=== PATIENT | male | born 1985 | race Hispanic/Latino ===

== ENCOUNTER 2018-07-12 20:06 | Emergency (ER) | payer BC, OTHER ==
[2018-07-12 21:29] VITALS: BP 113/71; PULSE 67; RESP 16; TEMP 98.3; O2SAT 100
[2018-07-12] MEDS ORDERED: Povidone Iodine Topical 10% Sol ONE (22:11)
[2018-07-12] MEDS ORDERED: Tdap Vaccine 0.5 ml Vial (10-64 yrs) IM ONE ×2 (22:12→22:58)
--- NOTE | 2018-07-12 23:00 | ED PDOC ---
HPI: Skin/Bite Injury Time Seen by Provider: 07/12/18 22:13 Chief Complaint (Nursing): Abnormal Skin Integrity Chief Complaint (Provider): laceration History Per: Patient History/Exam Limitations: no limitations Onset/Duration Of Symptoms: Hrs (one) Additional Complaint(s): Pt presents to the ED complaining of a right thumb laceration at the distal edge; pt sliced his thumb inadvertently with a kitchen utensil; bleeding is under control, the patient is NKA and he is hemodynamically stable. Past Medical History Reviewed: Historical Data, Nursing Documentation, Vital Signs Vital Signs: Last Vital Signs Temp 98.3 F 07/12/18 21:28 Pulse 67 07/12/18 21:28 Resp 16 07/12/18 21:28 BP 113/71 07/12/18 21:28 Pulse Ox 100 07/12/18 21:28 - Family History Family History: States: Unknown Family Hx - Allergies Allergies/Adverse Reactions: Allergies Allergy/AdvReac Type Severity Reaction Status Date / Time No Known Allergies Allergy Verified 07/12/18 21:28 Review of Systems ROS Statement: Except As Marked, All Systems Reviewed And Found Negative Skin: Positive for: Other (laceration, see HPI) Physical Exam - Reviewed Nursing Documentation Reviewed: Yes Vital Signs Reviewed: Yes - Physical Exam Appears: Positive for: Well, Non-toxic Head Exam: Positive for: ATRAUMATIC, NORMAL INSPECTION Skin: Positive for: Warm, Dry. Negative for: Normal Color (avulsion laceration at distal edge of left thumb; bleeding is under control), Diaphoresis, Pallor, Rash Neck: Positive for: Supple Cardiovascular/Chest: Positive for: Regular Rate, Rhythm Respiratory: Positive for: Normal Breath Sounds Pulses-Carotid (L): 2+ Pulses-Carotid (R): 2+ Pulses-Radial (L): 2+ Pulses-Radial (R): 2+ - ECG O2 Sat by Pulse Oximetry: 100 Medical Decision Making Medical Decision Making: I: Avulsion lac P: control bleeding if necessary surgifoam discharge abx adacel wound care instructions Disposition - Clinical Impression Clinical Impression: Laceration of thumb - Patient ED Disposition Is Patient to be Admitted: No Counseled Patient/Family Regarding: Diagnosis - Disposition Disposition: Routine/Home Disposition Time: 22:55 Condition: STABLE Instructions: Wound Care (DC), Wound Care Forms: [employer] (Urdu)
== END 2018-07-12 23:05 | disposition home or self-care (01) ==
LOC: H.ER 20:06
DX: S61.012A Laceration without foreign body of left thumb without damage to nail, initial encounter (principal); W26.0XXA Contact with knife, initial encounter; Y92.000 Kitchen of unspecified non-institutional (private) residence as the place of occurrence of the external cause; Z23 Encounter for immunization